=== PATIENT | female | born 1990 | race African-American/Black ===

== ENCOUNTER 2021-11-24 08:36 | Emergency (ER) | payer SELFPAY ==
[~2021-11-24] VITALS: Ht 172.7 cm; Wt 78.0 kg
[2021-11-24 08:40] VITALS: BP 135/117
[2021-11-24] MEDS ORDERED: VISCOUS LIDOCAINE 2% 15 ML UDC PO ONE (09:00)
[2021-11-24] MEDS ORDERED: PANTOPRAZOLE 40MG DR TABLET PO ONE (09:00)
[2021-11-24] MEDS ORDERED: MAGNESIUM/ALUMINUM HYDROXIDE/SIMETHICONE 30ML UDC PO ONE (09:00)
[2021-11-24 09:26] LABS: BASOPHILS % 0.7 % (0.0-2.0); EOSINOPHILS % 1.2 % (0.0-5.0); HEMATOCRIT. 37.8 % (36.0-48.0); HEMOGLOBIN. 12.3 g/dL (12.0-16.0); MEAN CORPUSCULAR HEMOGLOBIN 26.1 pg (28.0-32.0); MEAN PLATELET VOLUME 8.2 fl (7.4-10.4); MONOCYTES % 5.9 % (2.0-8.0); NEUTROPHILS % 55.2 % (40.0-76.0); PLATELET 218 x1000/uL (130-400); RED BLOOD CELL COUNT 4.73 mill/uL (4.2-5.4); RED CELL DISTRIBUTION WIDTH 14.7 % (11.6-14.6)
[2021-11-24 09:35] LABS: CHLORIDE 107 mEq/L (98-107)
[2021-11-24 09:38] LABS: HCG SCREEN NEGATIVE
[2021-11-24] MEDS ORDERED: IOHEXOL-350 100 ML BOTTLE ONE (14:21)
== END 2021-11-24 13:32 | disposition home or self-care (01) ==
LOC: ER 08:36
DX: R06.02 Shortness of breath (principal); F41.1 Generalized anxiety disorder
CPT/HCPCS: 36415; 71045; 71275; 80053; 83690; 83880; 84484; 84703; 85025; 85379; 93005; 99285; Q9967